=== PATIENT | male | born 1960 | race Caucasian/White ===

== ENCOUNTER → 2017-12-10 | Outpatient (CLI) | payer BC, OTHER ==
[~2017-12-10] VITALS: Ht 172.7 cm; Wt 77.1 kg
[~2017-12-10] MED LIST: LIPITOR 20 MG T20 M1 PO; TOPROL XL25 MG PO
--- NOTE | ~2017-12-10 | CATHLAB ---
[facility] [place] [address] INVASIVE PROCEDURE REPORT Name: LATASHA CÁRDENAS [id number] Admission: 12/10/17 Attend Phys: Davin Quinteros Discharge: Date of : 58 Date of Service: 12/10/17 1620 Report #: [id number] THIS REPORT FOR: //name// APPROVED REPORT Patient Details Patient Status: Out-Patient Room #: The patient is a 57 year-old male Event Personnel Davin Ramirez Layup Worker, Ariane Uriarte, Saray Akhtar [place], Ariel RN marine pipefitter Performed Art Access - R femoral artery* 16048 Initial Mod Sed Same Phys/QHP Gr5y [id number] Left Heart Cath w/or w/o Coronaries [id number] [facility] [place] Hemostasis with Manual pressure Procedure Narrative The patient was brought electively to the Cardiac Catheterization Laboratory and was prepped and draped in a sterile manner. The Right Groin^ was infiltrated with 1% Lidocaine subcutaneous anesthesia. A PINNACLE 4FR Sheath #[id number] sheath was inserted into the RFA^. Coronary angiography was performed using coronary diagnostic catheters. The right coronary system was accessed and visualized with a JR 4 catheter. The left coronary system was accessed and visualized with a JL 4 catheter. The left ventricle was accessed and visualized with a JR 4 catheter. Left ventricular/Aortic Valve gradient assessed via catheter pullback. Hemostasis was obtained with manual pressure following sheath removal without any complications. The patient tolerated the procedure well and there were no complications associated with the procedure. There was no hematoma. Intraoperative Conscious Sedation Sedation start time: 12:50 Case end Time: 13:09 Versed 2.0 mg Fluoro Time: 1.24 minutes Dose: DAP 2763.60 cGycm2 419 mGy Contrast Type and Amount: Omnipaque 1.24 ml Coronary Angiography The patient's coronary anatomy is right dominant. [facility] [address] [place] [address] INVASIVE PROCEDURE REPORT Name: LATASHA CÁRDENAS Room #: REG [facility]#: [id number] Admission: 12/10/17 Attend Phys: Davin Quinteros Discharge: Date of : 58 Date of Service: 12/10/17 1620 Report #: [id number] Diagnostic Cath Left Main Small to moderate calibered normal origin bifurcates left anterior descending left circumflex coronary artery of significant high-grade obstructive lesions but with mild luminal irregularities LAD Small-caliber vessel which gives rise to a first septal and first diagonal branch in its proximal course. It then is chronically occluded with some minimal visualizations antegrade of the proximal mid LAD. Upon waiting there is some homocollaterals filling the mid and distal LAD very slowly and faintly. Diagonal 1 Small-caliber bifurcating vessel with a moderate ostial lesion of face bifurcating branch which is less than 1 mm in diameter. Continues on the anterolateral wall without high-grade lesions although significant tortuosity in its course Circumflex Small to moderate-caliber vessel which gives rise to a first marginal branch. circumflex terminates 2 small posterior wall branches in the post Restoril left ventricle. There appears to be a high-grade lesion after the first marginal branch which is seen in only 2 views OM1 It courses along the anterolateral wall with significant tortuosity in its course and presence of mild luminal irregularities but no high-grade obstructive lesion. It is small to moderate in diameter Right Coronary Prior to large caliber vessel of normal origin and courses in the AV groove. He gives rise to a very soft small diameter but long length RV marginal branch free of high-grade disease. There is luminal irregularities in the proximal course. The RCA continues giving rise to posterior descending artery at the crux of the heart and terminating as a posterior lateral branch with 2 posterior wall branches free of high-grade disease. There is R PDA Realization of right to left collaterals to the mid and distal LAD Left Ventriculography Left Ventriculography was not performed. Hemodynamics The aortic pressure is 131/81 mmHg with a mean of 103 mmHg. The left ventricular pressure is 133/1 mmHg with a mean of mmHg. The left ventricular end diastolic pressure is 14 mmHg. Conclusion 1. Coronary artery disease severe two-vessel consisting of a totally occluded but had no collateralized mid and distal LAD and a mid circumflex [facility] [address] [place] [address] INVASIVE PROCEDURE REPORT Name: LATASHA CÁRDENAS Room #: S[facility]ERO [facility]#: [id number] Admission: 12/10/17 Attend Phys: Davin Quinteros Discharge: Date of : 58 Date of Service: 12/10/171619 Report #: [id number] 2. Evidence of epicardial calcifications noted on fluoroscopy 3. Normal hemodynamics <ELECTRONICALLY SIGNED> By: Davin Ramirez MD 12/10/170 19 19 Davin Ramirez MD /INF
[2017-12-10 11:42] VITALS: BP 141/96
== END | disposition home or self-care (01) ==
LOC: CATH 11:02
DX: I25.10 Atherosclerotic heart disease of native coronary artery without angina pectoris (principal); E78.5 Hyperlipidemia, unspecified; F41.8 Other specified anxiety disorders; Z82.49 Family history of ischemic heart disease and other diseases of the circulatory system; Z98.890 Other specified postprocedural states; Z79.899 Other long term (current) drug therapy